=== PATIENT | female | born 1940 | race Caucasian/White ===

== ENCOUNTER → 2018-04-17 | Outpatient (CLI) | payer MEDICARE ==
--- NOTE | 2018-04-17 13:58 | RADIOLOGY REPORT (SQ) ---
EXAM DESCRIPTION: CT HEAD WITHOUT COMPLETED DATE/TIME: 04/17/2018 1:38 pm REASON FOR STUDY: R26.0 ATAXIC GAIT R42 DIZZINESS AND GIDDINESS R26.0 ATAXIC GAIT R42 DIZZINESS AN D GIDDINESS COMPARISON: None. TECHNIQUE: Axial images acquired through the brain without intravenous contrast. Images reviewed wi th bone, brain and subdural windows. Additional sagittal and coronal reconstructions were generated. Images stored on PACS. All CT scanners at this facility use dose modulation, iterative reconstruction, and/or weight based d osing when appropriate to reduce radiation dose to as low as reasonably achievable (ALARA). [facility]: Dose Right [facility]: CareDose [facility]: Dose Right [facility]: Teradose 4D [facility]: Datacratic RADIATION DOSE: CT Rad equipment meets quality standard of care and radiation dose reduction techniq ues were employed. CTDIvol: 48.5 mGy. DLP: 879 mGy-cm. mGy. LIMITATIONS: None. FINDINGS: VENTRICLES: Prominent. CEREBRUM: No masses. No hemorrhage. No midline shift. Areas of low density in the white matter mos t likely due to chronic micro-vascular ischemic change. No evidence for acute infarction. CEREBELLUM: No masses. No hemorrhage. No alteration of density. No evidence for acute infarction. EXTRAAXIAL SPACES: Mild age-related involutional change. No fluid collections. No masses. ORBITS AND GLOBE: No intra- or extraconal masses. Normal contour of globe without masses. CALVARIUM: No fracture. PARANASAL SINUSES: No fluid or mucosal thickening. SOFT TISSUES: No mass or hematoma. OTHER: No other significant finding. IMPRESSION: MILD CHRONIC CHANGES OF ATROPHY AND MICROVASCULAR ISCHEMIA. NO ACUTE PROCESS. EVIDENCE OF ACUTE STROKE: NO. TECHNICAL DOCUMENTATION: JOB ID: [id number] Quality ID # [id number]: Final reports with documentation of one or more dose reduction techniques (e.g., Au tomated exposure control, adjustment of the mA and/or kV according to patient size, use of iterative reconstruction technique) 2010 [employer] All Rights Reserved Reading location - IP/workstation name: [email or web address]
--- NOTE | 2018-04-17 16:41 | RADIOLOGY REPORT (SQ) ---
EXAM DESCRIPTION: CAROTID DOPPLER COMPLETED DATE/TIME: 04/17/2018 4:30 pm REASON FOR STUDY: ATAXIC GAIT, DIZZINESS R26.0 ATAXIC GAIT R42 DIZZINESS AND GIDDINESS COMPARISON: None. TECHNIQUE: Grayscale ultrasound, Doppler velocity and spectra, and color Doppler images acquired of the extra-cranial carotid and vertebral arteries. Images stored on PACS. LIMITATIONS: None. FINDINGS: RIGHT CAROTID CCA Velocities: Within normal limits. ICA Velocities Peak systolic 1.02 m/s. End diastolic 0.2 m/s. Proximal ICA/CCA peak systolic ratio 1.09. Minimal plaquing. No significant stenosis. LEFT CAROTID CCA Velocities: Within normal limits. ICA Velocities Peak systolic 1.02 m/s. End diastolic 0.33 m/s. Proximal ICA/CCA peak systolic ratio 1.02. Minimal plaquing. No significant stenosis. VERTEBRAL ARTERIES: Antegrade flow. Normal waveforms. SUBCLAVIAN ARTERIES: No finding. OTHER: No other significant finding. IMPRESSION: NO HEMODYNAMICALLY SIGNIFICANT STENOSIS. COMMENT: Quality ID #[id number]: Velocity criteria are extrapolated from the diameter data as defined by t he Society of Radiologists in Ultrasound Consensus Conference. Radiology 2003: 229; 340-346. TECHNICAL DOCUMENTATION: JOB ID: [id number] [employer]- All Rights Reserved Reading location - IP/workstation name: [email or web address]
== END ==
LOC: RAD 15:42
PROVIDERS: ATTEND Family Medicine
DX: R26.0 Ataxic gait (principal); R42 Dizziness and giddiness
CPT/HCPCS: 70450; 93880